=== PATIENT | female | born 1960 | race Caucasian/White ===

== ENCOUNTER → 2016-08-15 | Outpatient (CLI) | payer OTHER | LOC: FIMAGING 07:44 | PROVIDERS: ATTEND Family Medicine | DX: K80.20 Calculus of gallbladder without cholecystitis without obstruction (principal); K83.9 Disease of biliary tract, unspecified ==

== ENCOUNTER → 2016-12-17 | Outpatient (CLI) | payer OTHER | LOC: BMCIMAGING 08:29 | PROVIDERS: ATTEND Family Medicine | DX: Z12.31 Encounter for screening mammogram for malignant neoplasm of breast (principal) | CPT/HCPCS: G0202 ==

== ENCOUNTER → 2018-01-13 | Outpatient (CLI) | payer OTHER | LOC: BMCIMAGING 08:22 | PROVIDERS: ATTEND Family Medicine | DX: Z12.31 Encounter for screening mammogram for malignant neoplasm of breast (principal) ==

== ENCOUNTER 2018-08-15 11:01 | Day surgery (SDC) | payer OTHER ==
[2018-08-15] MEDS ORDERED: ceFAZolin 2 GM/DEXTROSE 100 ML IV ONE (11:11)
[2018-08-15] MEDS ORDERED: LR 1,000 ML IV ONE (11:14)
[2018-08-15] MEDS ORDERED: BUPIVACAINE 0.5% 30 ML SDV ONE (11:52)
--- NOTE | 2018-08-15 12:41 | PDHPUP ---
History & Physical Update H&P update statement: This history and physical update is based on an assessment of the patient which was completed after admission or registration (within 24 hours), but prior to the surgery/procedure. H&P update: H&P reviewed & patient examined, no change in patient's condition since H&P completed
[2018-08-15] MEDS ORDERED: SCOPOLAMINE HYDROBROMIDE 1 MG/3 DAYS PATCH TD ONE ×2 (12:43→13:12)
[2018-08-15] MEDS ORDERED: MIDAZOLAM 2 MG/2 ML VIAL IVP ONE (13:07)
[2018-08-15] MEDS ORDERED: NALOXONE HCL 0.4 MG/ML INJ IVP PRN ×2 (13:07→15:03)
[2018-08-15] MEDS ORDERED: MIDAZOLAM 2 MG/2 ML VIAL ONE (13:08)
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
[2018-08-15] MEDS ORDERED: DEXAMETHASONE 4 MG/ML VIAL ONE (13:21)
[2018-08-15] MEDS ORDERED: ROCURONIUM 50 MG/5 ML VIAL ONE (13:21)
[2018-08-15] MEDS ORDERED: PROPOFOL 200 MG/20 ML VIAL ONE (13:21)
[2018-08-15] MEDS ORDERED: fentaNYL 250 MCG/5 ML INJ ONE (13:21)
[2018-08-15] MEDS ORDERED: PROPOFOL/EMULSION 500 MG/50 ML BOTTLE IV ONE (13:21)
[2018-08-15] MEDS ORDERED: LIDOCAINE 2% 5 ML SDV ONE (13:27)
[2018-08-15] MEDS ORDERED: ONDANSETRON 4 MG/2 ML VIAL ONE ×2 (14:12)
[2018-08-15] MEDS ORDERED: SUGAMMADEX SODIUM 200 MG/2 ML VIAL IVP ONE (14:14)
--- NOTE | 2018-08-15 14:36 | POSTOPPROG ---
Post Op Note Date of Operation: 08/15/18 Surgeon: Chel May [employer] Attorney: miguel angel Anesthesiologist: ezekiel Anesthesia: GET(General Endotracheal) Pre-op Diagnosis: Sympt cholelithiasis Post-op Diagnosis: same Indication: 58yo F with symptomatic cholelithiasis Procedure: lap ton Findings: none unusual Inf/Abcess present in the surg proc area at time of surgery?: No EBL: Minimal Complications: None immediately postoperatively Bowel Protocol: N/A Clean Closure Performed: N/A Specimen(s): Gallbladder
[2018-08-15] MEDS ORDERED: fentaNYL 100 MCG/2 ML INJ ONE (14:43)
[2018-08-15] MEDS: fentaNYL 100 MCG/2 ML INJ IVP PRN ×2 (14:49→14:59)
[2018-08-15] MEDS ORDERED: ONDANSETRON 4 MG/2 ML VIAL IVP PRN (15:03)
[2018-08-15] MEDS ORDERED: LR 500 ML IV PRN (15:03)
[2018-08-15] MEDS ORDERED: DIAZEPAM 10 MG/2 ML SYR IVP PRN (15:03)
[2018-08-15] MEDS ORDERED: traMADol 50 MG TAB PO PRN (15:04)
[2018-08-15] MEDS ORDERED: traMADol 50 MG TAB ONE (15:17)
--- NOTE | 2018-08-15 15:24 | POSTANESTH ---
Post Anesthetic Evaluation Cardiovascular Status: Normal, Stable Respiratory Status: Normal, Stable Level of Consciousness/Mental Status: Can Participate in Eval Pain Control: Adequate, Prn Tx Ordered Nausea/Vomiting Control: Adequate, Prn Tx Ordered Complications Possibly Related to Anesthesia: None Noted
[2018-08-15 16:35] VITALS: BP 122/77
[2018-08-16] MEDS ORDERED: PATCH REMOVAL 1 EA PATCH TD ONE (12:43)
== END 2018-08-15 16:37 | disposition home or self-care (01) ==
LOC: FSGY 11:01
PROVIDERS: ATTEND Surgery
PROC: 0FT44ZZ Resection of Gallbladder, Percutaneous Endoscopic Approach (ICD-10-PCS; principal; 2018-08-15 12:30)
DX: K80.20 Calculus of gallbladder without cholecystitis without obstruction (principal); E03.9 Hypothyroidism, unspecified
CPT/HCPCS: J0690; J1100; J2250; J2405; J2704; J3010